=== PATIENT | female | born 1935 | race Caucasian/White ===

== ENCOUNTER → 2023-08-12 | Outpatient (CLI) | payer MEDICARE | END | disposition home or self-care (01) | LOC: RESCLI 12:59 | PROVIDERS: ATTEND Internal Medicine | DX: I50.9 Heart failure, unspecified (principal); M06.9 Rheumatoid arthritis, unspecified; E03.9 Hypothyroidism, unspecified; K21.9 Gastro-esophageal reflux disease without esophagitis; E78.5 Hyperlipidemia, unspecified; M81.0 Age-related osteoporosis without current pathological fracture; K57.32 Diverticulitis of large intestine without perforation or abscess without bleeding; N18.9 Chronic kidney disease, unspecified; Z79.899 Other long term (current) drug therapy; Z88.8 Allergy status to other drugs, medicaments and biological substances ==

== ENCOUNTER 2025-02-13 14:59 | Emergency (ER) | payer MEDICARE ==
[~2025-02-13] VITALS: Ht 165.1 cm; Wt 52.2 kg
[2025-02-13] MEDS ORDERED: METOPROLOL SUCC25 M2 PO (15:12)
[2025-02-13] MEDS ORDERED: FAMOTIDINE40 MG PO (15:13)
[2025-02-13] MEDS ORDERED: LEVOTHYROXINE75 MCG PO (15:13)
[2025-02-13] MEDS ORDERED: SODIUM CHLORI1000 M5 PO (15:13)
[2025-02-13] MEDS ORDERED: ENTRESTO 24 MG1 EACH PO (15:13)
[2025-02-13] MEDS ORDERED: BUMETANIDE1 MG PO (15:13)
[2025-02-13] MEDS ORDERED: ATORVASTATIN CA10 M1 PO (15:14)
[2025-02-13] MEDS ORDERED: PREDNISONE5 MG PO (15:14)
[2025-02-13] MEDS ORDERED: JARDIANCE10 MG PO (15:16)
[2025-02-13] MEDS ORDERED: Tdap Vaccine 0.5 ML SYR (Adult Vaccine) IM ONE ×2 (15:25→16:09)
== END 2025-02-13 18:12 | disposition home or self-care (01) ==
LOC: ED 14:59
DX: S00.01XA Abrasion of scalp, initial encounter (principal); I50.9 Heart failure, unspecified; M81.0 Age-related osteoporosis without current pathological fracture; Z79.899 Other long term (current) drug therapy; Z88.2 Allergy status to sulfonamides; Z88.7 Allergy status to serum and vaccine; W01.0XXA Fall on same level from slipping, tripping and stumbling without subsequent striking against object, initial encounter; Y93.01 Activity, walking, marching and hiking; Y92.89 Other specified places as the place of occurrence of the external cause; Y99.8 Other external cause status